=== PATIENT | female | born 1940 | race Two or more races ===

== ENCOUNTER 2018-10-08 23:52 | Emergency (ER) | payer MEDICARE ==
[~2018-10-08] VITALS: Ht 152.4 cm; Wt 81.4 kg
[2018-10-09] MEDS ORDERED: POTA8TAB60 PO (00:13)
[2018-10-09] MEDS ORDERED: FAMO20 PO (00:13)
[2018-10-09] MEDS ORDERED: LISI-662 PO (00:13)
[2018-10-09] MEDS ORDERED: FOLI1 PO (00:13)
[2018-10-09] MEDS ORDERED: HYDR25TA PO (00:13)
[2018-10-09] MEDS ORDERED: GABA-531 PO (00:13)
[2018-10-09] MEDS ORDERED: SULF500T60 PO (00:13)
[2018-10-09] MEDS ORDERED: METOCLOPRAMIDE HCL 10 MG TABLET PO ONE (01:30)
[2018-10-09 02:45] VITALS: BP 146/83
== END 2018-10-09 02:48 | disposition home or self-care (01) ==
LOC: EMS 23:55
DX: R51 Headache (principal); I10 Essential (primary) hypertension; Z88.5 Allergy status to narcotic agent; Z79.899 Other long term (current) drug therapy
CPT/HCPCS: 70450

== ENCOUNTER 2019-01-03 08:51 | Emergency (ER) | payer MEDICARE, MEDICAID ==
[~2019-01-03] VITALS: Ht 152.4 cm; Wt 81.8 kg
[~2019-01-03 08:51] MED LIST: FAMO20 PO; FOLI1 PO; GABA-531 PO; HYDR25TA PO; LISI-662 PO; POTA8TAB60 PO; SULF500T60 PO
[2019-01-03] MEDS ORDERED: CHOL100018 PO (09:04)
[2019-01-03] MEDS ORDERED: TRAM50TA4 PO (09:04)
[2019-01-03] MEDS ORDERED: DSS100 PO (09:04)
[2019-01-03] MEDS ORDERED: BARIUM SULFATE 0.1% SUSPENSION 450 ML BOTTLE PO ONE (09:15)
[2019-01-03] MEDS ORDERED: BARIUM SULFATE 0.1% SUSPENSION 450 ML BOTTLE ONE (09:30)
[2019-01-03 09:33] LABS: BASOPHILS % (AUTO) 0.6 % (0.0-2.0); EOSINOPHILS % (AUTO) 0.8 % (1.0-6.0); HEMATOCRIT 37.2 % (36-46); HEMOGLOBIN 12.5 g/dL (12.0-16.0); LYMPHOCYTES # (AUTO) 4.4 K/uL (1.0-4.8); LYMPHOCYTES % (AUTO) 48.4 % (22.0-44.0); MEAN CORPUSCULAR HEMOGLOBIN 32.2 pg (26.0-34.0); MEAN CORPUSCULAR HGB CONC 33.6 G/dL (31.0-37.0); MEAN CORPUSCULAR VOLUME 96 fL (80-100); MONOCYTES # (AUTO) 0.7 K/uL (0.1-1.0); MONOCYTES % (AUTO) 7.3 % (2.0-9.0); NEUTROPHILS # (AUTO) 3.9 K/uL (1.8-7.7); NEUTROPHILS % (AUTO) 42.9 % (40.0-70.0); PLATELET COUNT (AUTO) 247 K/uL (150-450); RED BLOOD CELL COUNT(AUTO) 3.88 MIL/uL (4.00-5.20); RED CELL DISTRIBUTION WIDTH 14.1 % (11.5-14.5)
[2019-01-03 09:45] LABS: CALCIUM, TOTAL 9.2 mg/dL (8.8-10.5); CREATININE 0.93 mg/dL (0.60-1.30); POTASSIUM 4.4 mmol/L (3.5-5.1)
[2019-01-03 09:50] LABS: ALBUMIN 4.2 g/dL (3.4-5.0); BILIRUBIN,TOTAL 0.4 mg/dL (0.1-1.0); TOTAL PROTEIN, SERUM 7.5 g/dL (6.4-8.2)
[2019-01-03 10:32] LABS: APPEARANCE,URINE CLEAR (CLEAR); BILIRUBIN,URINE NEGATIVE (NEGATIVE); GLUCOSE, URINE (UA) NEGATIVE (NEGATIVE); KETONES,URINE NEGATIVE (NEGATIVE); LEUKOCYTE ESTERASE ,URINE NEGATIVE (NEGATIVE); NITRATE,URINE NEGATIVE (NEGATIVE); OCCULT BLOOD,URINE NEGATIVE (NEGATIVE); PH,URINE 7.5 (5.0-8.0); PROTEIN,URINE NEGATIVE (NEGATIVE); UROBILINOGEN,URINE 0.2 mg/dL (<=1.0)
[2019-01-03] MEDS ORDERED: IOVERSOL 350 MG/ML 100 ML VIAL ONE (10:50)
[2019-01-03] MEDS ORDERED: SODIUM CHLORIDE 0.9% 100 ML ONE (10:50)
[2019-01-03 13:00] VITALS: BP 152/74
[2019-01-03] MEDS ORDERED: MAGNESIUM CITRATE 300 ML ORAL SOLUTION PO ONE (13:00)
== END 2019-01-03 13:11 | disposition home or self-care (01) ==
LOC: EMS 08:53
DX: K59.00 Constipation, unspecified (principal); I10 Essential (primary) hypertension; Z88.5 Allergy status to narcotic agent; Z79.899 Other long term (current) drug therapy
CPT/HCPCS: 36415; 74177; 80053; 81003; 83690; 84484; 85025; 93005; 99284; J7050; Q9967

== ENCOUNTER 2022-05-02 19:45 | Inpatient (IN) | payer MEDICARE, MEDICAID ==
[~2022-05-02] VITALS: Ht 152.4 cm; Wt 82.8 kg
[~2022-05-02 19:45] MED LIST changes: +CHOL100018 PO; +DSS100 PO; +FOLI-130 PO; -FOLI1 PO; +GABA-1181 PO; -GABA-531 PO; -HYDR25TA PO; +HYDR25TA2 PO; -LISI-662 PO; +LISI-894 PO; +POTA8TAB PO; -POTA8TAB60 PO; +TRAM-559 PO
[2022-05-02 20:45] LABS: COVID AG,FIA SOURCE NASOPHARYNGEAL
[2022-05-02] MEDS ORDERED: SODIUM CHLORIDE 0.9% 1,000 ML IV ONE ×2 (20:45→23:15)
[2022-05-02 21:10] LABS: BASOPHILS % (AUTO) 0.9 % (0.0-2.0); EOSINOPHILS % (AUTO) 0.4 % (1.0-6.0); HEMATOCRIT 39.2 % (36-46); HEMOGLOBIN 13.2 g/dL (12.0-16.0); LYMPHOCYTES # (AUTO) 1.9 K/uL (1.0-4.8); LYMPHOCYTES % (AUTO) 21.3 % (22.0-44.0); MEAN CORPUSCULAR HEMOGLOBIN 32.2 pg (26.0-34.0); MEAN CORPUSCULAR HGB CONC 33.8 G/dL (31.0-37.0); MEAN CORPUSCULAR VOLUME 95 fL (80-100); MONOCYTES # (AUTO) 0.6 K/uL (0.1-1.0); MONOCYTES % (AUTO) 6.7 % (2.0-9.0); NEUTROPHILS # (AUTO) 6.2 K/uL (1.8-7.7); NEUTROPHILS % (AUTO) 70.7 % (40.0-70.0); PLATELET COUNT (AUTO) 256 K/uL (150-450); RED BLOOD CELL COUNT(AUTO) 4.11 MIL/uL (4.00-5.20); RED CELL DISTRIBUTION WIDTH 14.6 % (11.5-14.5)
[2022-05-02] MEDS ORDERED: IOHEXOL 350 MG/ML 100 ML VIAL ONE (21:16)
[2022-05-02] MEDS ORDERED: SODIUM CHLORIDE 0.9% 100 ML ONE (21:16)
[2022-05-02 21:21] LABS: ANION GAP 10 mmol/L (8-16); CALCIUM, TOTAL 9.1 mg/dL (8.8-10.5); CARBON DIOXIDE 26 mmol/L (22-29); CHLORIDE 98 mmol/L (98-107); CREATININE 0.78 mg/dL (0.60-1.30); GLUCOSE,RANDOM 118 mg/dL (70-110); POTASSIUM 3.9 mmol/L (3.5-5.1); SODIUM SERUM 134 mmol/L (136-145); UREA NITROGEN, BLOOD 13 mg/dL (7-18)
[2022-05-02 21:22] LABS: GLOMERULAR FILTR. RATE CALC > 60 mL/min (>60)
[2022-05-02 21:29] LABS: AMMONIA < 10 umol/L (11-32); LACTIC ACID 1.2 mmol/L (0.4-2.0)
[2022-05-02 21:36] LABS: ALANINE AMINOTRANSFERASE 12 U/L (12-78); ALBUMIN 4.2 g/dL (3.4-5.0); ALKALINE PHOSPHATASE 54 U/L (46-116); ASPARTATE AMINOTRANSFERASE 17 U/L (15-37); BILIRUBIN,TOTAL 0.5 mg/dL (0.1-1.0); LIPASE 101 U/L (73-393); TOTAL PROTEIN, SERUM 8.3 g/dL (6.4-8.2)
[2022-05-02] MEDS ORDERED: MAGNESIUM HYDROXIDE SUSPENSION 30 ML UDCUP PO PRN (23:00)
[2022-05-02] MEDS ORDERED: 0.9% SODIUM CHLORIDE 10 ML SYRINGE IVP PRN (23:00)
[2022-05-02] MEDS ORDERED: ACETAMINOPHEN 325 MG TABLET PO PRN ×2 (23:00)
[2022-05-02] MEDS ORDERED: ONDANSETRON HCL 4 MG/2 ML VIAL IVP PRN ×2 (23:00)
[2022-05-02] MEDS ORDERED: CloNIDine HCL 0.1 MG TABLET PO PRN (23:15)
[2022-05-02 23:23] LABS: THYROID STIMULATING HORMONE 2.04 uIU/mL (0.36-3.74)
[2022-05-02] MEDS: AmLODIPine BESYLATE 5 MG TABLET PO SCH (23:23)
[2022-05-02 23:37] LABS: APPEARANCE,URINE CLEAR (CLEAR); BILIRUBIN,URINE NEGATIVE (NEGATIVE); GLUCOSE, URINE (UA) NEGATIVE (NEGATIVE); KETONES,URINE NEGATIVE (NEGATIVE); LEUKOCYTE ESTERASE ,URINE NEGATIVE (NEGATIVE); NITRATE,URINE NEGATIVE (NEGATIVE); OCCULT BLOOD,URINE NEGATIVE (NEGATIVE); PH,URINE 7.5 (5.0-8.0); PROTEIN,URINE NEGATIVE (NEGATIVE); SPECIFIC GRAVITIY, URINE 1.032 (1.003-1.030); UROBILINOGEN,URINE <=1.0 mg/dL (<=1.0)
[2022-05-02 23:39] LABS: AMPHET/METH SCREEN,URINE NEGATIVE (NEGATIVE); BARBITURATE SCREEN, URINE NEGATIVE (NEGATIVE); BENZODIAZEPINES SCREEN,URINE NEGATIVE (NEGATIVE); CANNABINOID SCREEN,URINE NEGATIVE (NEGATIVE); COCAINE SCREEN,URINE NEGATIVE (NEGATIVE); METHADONE SCREEN, URINE NEGATIVE (NEGATIVE); OPIATE SCREEN,URINE NEGATIVE (NEGATIVE)
[2022-05-02 23:41] LABS: PHENCYCLIDINE SCREEN,URINE NEGATIVE (NEGATIVE)
[2022-05-02 23:51] LABS: BACTERIA,URINE None Seen /HPF (None Seen); RBC,URINE None Seen /HPF (0-2); SQUAMOUS EPITHELIAL CELL,UR Rare /LPF (None Seen); WBC,URINE None Seen /HPF (0-5)
[2022-05-03 01:03] VITALS: BP 157/58
[2022-05-03] MEDS: HEPARIN SODIUM,PORCINE 5,000 UNITS/ML VIAL SQ SCH ×4 (01:14→23:57)
[2022-05-03 04:10] VITALS: BP 135/64
[2022-05-03 06:57] LABS: BASOPHILS % (AUTO) 0.6 % (0.0-2.0); EOSINOPHILS % (AUTO) 0.6 % (1.0-6.0); HEMATOCRIT 35.2 % (36-46); HEMOGLOBIN 12.1 g/dL (12.0-16.0); LYMPHOCYTES # (AUTO) 2.1 K/uL (1.0-4.8); MEAN CORPUSCULAR HEMOGLOBIN 32.4 pg (26.0-34.0); MEAN CORPUSCULAR HGB CONC 34.3 G/dL (31.0-37.0); MEAN CORPUSCULAR VOLUME 95 fL (80-100); MONOCYTES # (AUTO) 0.6 K/uL (0.1-1.0); MONOCYTES % (AUTO) 8.8 % (2.0-9.0); NEUTROPHILS # (AUTO) 4.3 K/uL (1.8-7.7); PLATELET COUNT (AUTO) 239 K/uL (150-450); RED BLOOD CELL COUNT(AUTO) 3.73 MIL/uL (4.00-5.20); RED CELL DISTRIBUTION WIDTH 14.5 % (11.5-14.5)
[2022-05-03 07:17] LABS: ALANINE AMINOTRANSFERASE 8 U/L (12-78); ALBUMIN 3.6 g/dL (3.4-5.0); ALKALINE PHOSPHATASE 51 U/L (46-116); ANION GAP 7 mmol/L (8-16); ASPARTATE AMINOTRANSFERASE 16 U/L (15-37); BILIRUBIN,TOTAL 0.5 mg/dL (0.1-1.0); CALCIUM, TOTAL 8.2 mg/dL (8.8-10.5); CARBON DIOXIDE 27 mmol/L (22-29); CHLORIDE 103 mmol/L (98-107); CREATININE 0.69 mg/dL (0.60-1.30); GLUCOSE,RANDOM 102 mg/dL (70-110); POTASSIUM 3.9 mmol/L (3.5-5.1); SODIUM SERUM 137 mmol/L (136-145); TOTAL PROTEIN, SERUM 7.4 g/dL (6.4-8.2); UREA NITROGEN, BLOOD 10 mg/dL (7-18)
[2022-05-03 07:19] LABS: GLOMERULAR FILTR. RATE CALC > 60 mL/min (>60)
[2022-05-03 08:31] VITALS: BP 151/82
[2022-05-03] MEDS: GABAPENTIN 100 MG CAPSULE PO SCH ×2 (09:46→20:10)
[2022-05-03] MEDS: FAMOTIDINE 20 MG TABLET PO SCH (09:46)
[2022-05-03] MEDS: ASPIRIN 81 MG CHEWABLE TABLET PO SCH (09:47)
[2022-05-03 11:18] VITALS: BP 166/72
[2022-05-03] MEDS: DICLOFENAC SODIUM 1% 100 GM GEL [4GM] TP SCH ×2 (11:24→20:10)
[2022-05-03 15:14] VITALS: BP 142/72
[2022-05-03 19:45] VITALS: BP 155/77
[2022-05-03] MEDS: AmLODIPine BESYLATE 5 MG TABLET PO SCH (20:10)
[2022-05-03] MEDS: TraMADol HCL 50 MG TABLET PO PRN (23:57)
[2022-05-04] VITALS (7 sets, daily range): BP systolic 128–150; BP diastolic 55–78
[2022-05-04] MEDS: TraMADol HCL 50 MG TABLET PO PRN ×2 (08:59→17:14)
[2022-05-04] MEDS: FAMOTIDINE 20 MG TABLET PO SCH (09:00)
[2022-05-04] MEDS: DICLOFENAC SODIUM 1% 100 GM GEL [4GM] TP SCH ×2 (09:01→21:20)
[2022-05-04] MEDS: ASPIRIN 81 MG CHEWABLE TABLET PO SCH (09:01)
[2022-05-04] MEDS: GABAPENTIN 100 MG CAPSULE PO SCH ×2 (09:01→21:20)
[2022-05-04] MEDS: HEPARIN SODIUM,PORCINE 5,000 UNITS/ML VIAL SQ SCH ×3 (09:01→23:51)
[2022-05-04] MEDS: LIDOCAINE 5% TRANSDERMAL PATCH TD SCH (12:30)
[2022-05-04] MEDS: IBUPROFEN 400 MG TABLET PO PRN (13:42)
[2022-05-04] MEDS: AmLODIPine BESYLATE 5 MG TABLET PO SCH (21:20)
[2022-05-04] MEDS: -LIDODERM PATCH NOTE- MISC SCH (21:20)
[2022-05-05 05:00] VITALS: BP 149/71
[2022-05-05 07:29] VITALS: BP 131/63
[2022-05-05] MEDS: HEPARIN SODIUM,PORCINE 5,000 UNITS/ML VIAL SQ SCH ×3 (08:26→23:42)
[2022-05-05] MEDS: GABAPENTIN 100 MG CAPSULE PO SCH ×3 (08:27→20:48)
[2022-05-05] MEDS: FAMOTIDINE 20 MG TABLET PO SCH (08:27)
[2022-05-05] MEDS: ASPIRIN 81 MG CHEWABLE TABLET PO SCH (08:27)
[2022-05-05] MEDS: IBUPROFEN 400 MG TABLET PO PRN ×3 (08:40→20:57)
[2022-05-05] MEDS: DICLOFENAC SODIUM 1% 100 GM GEL [4GM] TP SCH ×2 (08:42→20:48)
[2022-05-05] MEDS: LIDOCAINE 5% TRANSDERMAL PATCH TD SCH (08:42)
[2022-05-05 11:58] VITALS: BP 137/95
[2022-05-05 15:47] VITALS: BP 149/72
[2022-05-05] MEDS: AmLODIPine BESYLATE 5 MG TABLET PO SCH (20:48)
[2022-05-05] MEDS: -LIDODERM PATCH NOTE- MISC SCH (21:00)
[2022-05-06 08:04] VITALS: BP 139/57
[2022-05-06] MEDS: HEPARIN SODIUM,PORCINE 5,000 UNITS/ML VIAL SQ SCH (08:19)
[2022-05-06] MEDS: FAMOTIDINE 20 MG TABLET PO SCH (08:19)
[2022-05-06] MEDS: IBUPROFEN 400 MG TABLET PO PRN (08:19)
[2022-05-06] MEDS: GABAPENTIN 100 MG CAPSULE PO SCH (08:20)
[2022-05-06] MEDS: ASPIRIN 81 MG CHEWABLE TABLET PO SCH (08:20)
[2022-05-06] MEDS: LIDOCAINE 5% TRANSDERMAL PATCH TD SCH (08:20)
[2022-05-06] MEDS: DICLOFENAC SODIUM 1% 100 GM GEL [4GM] TP SCH (08:21)
[2022-05-06] MEDS ORDERED: LIDO700A30 TD (11:33)
[2022-05-06] MEDS ORDERED: GABA-1216 PO (11:33)
[2022-05-06] MEDS ORDERED: AMLO-257 PO (11:33)
[2022-05-06] MEDS ORDERED: TRAM-559 PO (11:33)
[2022-05-06] MEDS ORDERED: DICL100G51 TP (11:33)
[2022-05-06] MEDS ORDERED: ASPI81 PO (11:33)
[2022-05-06] MEDS ORDERED: IBUP-1506 PO (11:33)
[2022-05-06 12:00] VITALS: BP 138/71
== END 2022-05-06 15:00 | disposition home health service (06) | DRG 93 ==
LOC: EMS 19:49 → 5S 05-03 00:23
PROVIDERS: ADMIT Internal Medicine; ATTEND Internal Medicine
DX: G92.8 Other toxic encephalopathy (principal); G92.9 Unspecified toxic encephalopathy; E66.01 Morbid (severe) obesity due to excess calories; I10 Essential (primary) hypertension; M17.9 Osteoarthritis of knee, unspecified; Z20.822 Contact with and (suspected) exposure to COVID-19; E78.00 Pure hypercholesterolemia, unspecified; G89.29 Other chronic pain; K76.0 Fatty (change of) liver, not elsewhere classified; M17.10 Unilateral primary osteoarthritis, unspecified knee; R29.704 NIHSS score 4; Z68.35 Body mass index [BMI] 35.0-35.9, adult; Z79.899 Other long term (current) drug therapy; Z79.82 Long term (current) use of aspirin; Z82.49 Family history of ischemic heart disease and other diseases of the circulatory system; Z83.3 Family history of diabetes mellitus; Z88.5 Allergy status to narcotic agent; Z90.49 Acquired absence of other specified parts of digestive tract; T50.915A Adverse effect of multiple unspecified drugs, medicaments and biological substances, initial encounter
CPT/HCPCS: 70450; 70496; 71045; 72040; 72100; 80053; 80307; 81001; 82140; 83605; 83690; 84439; 84443; 84484; 85025; 87040; 93005; 97116; 97162; 97530; 97535; 99291; G0480; J1644; J7050; Q9967; 36415-L1; 36415-TC